=== PATIENT | male | born 1985 | race Two or more races ===

== ENCOUNTER 2023-09-28 14:22 | Emergency (ER) | payer OTHER ==
[~2023-09-28] VITALS: Ht 175.3 cm; Wt 81.6 kg
[~2023-09-28 14:22] MED LIST: HYDR-3972; ONDA4TAB11
[2023-09-28] MEDS ORDERED: FAMO-131 PO (15:16)
[2023-09-28 15:37] VITALS: BP 136/71; TEMP 98; O2SAT 97
== END 2023-09-28 15:30 | disposition home or self-care (01) ==
LOC: ER 14:40
DX: K29.70 Gastritis, unspecified, without bleeding (principal)